=== PATIENT | male | born 1960 | race Caucasian/White ===

== ENCOUNTER 2016-09-05 17:38 | Emergency (ER) | payer OTHER ==
[~2016-09-05] VITALS: Ht 172.7 cm; Wt 81.0 kg
[~2016-09-05 17:38] MED LIST: CARAFATE1 GM/10 ML PO; CITALOPRAM10 MG PO; DOXYCYC MONO100 M1 PO; LORTAB 7.5-3251 TAB PO; NORVASC2.5 MG PO; PREDNISONE10 MG PO; VENTOLIN HFA IN; VICODIN1 TA1 PO; VICOPROFEN PO; ZESTRIL10 M1 PO
[2016-09-05 18:10] VITALS: BP 189/106
== END 2016-09-05 18:25 | disposition home or self-care (01) | DRG 605 ==
LOC: ED 17:38
PROC: 0HQFXZZ Repair Right Hand Skin, External Approach (ICD-10-PCS; principal; 2016-09-05)
DX: S61.214A Laceration without foreign body of right ring finger without damage to nail, initial encounter (principal); W25.XXXA Contact with sharp glass, initial encounter; Y93.E9 Activity, other interior property and clothing maintenance; Y92.000 Kitchen of unspecified non-institutional (private) residence as the place of occurrence of the external cause

== ENCOUNTER 2016-12-29 14:01 | Emergency (ER) | payer OTHER ==
[~2016-12-29] VITALS: Ht 172.7 cm; Wt 77.0 kg
[~2016-12-29 14:01] MED LIST changes: +ESCITALOPRAM OX20 MG PO; +GABAPENTIN400 M2 PO; +LORATADINE10 M3; +METHOCARBAM750 MG PO; +RANITIDINE150 M1 PO; +TRAMADOL HCL50 MG PO
[2016-12-29 14:43] LABS: HEMATOCRIT 38.3 % (39.0-50.0); HEMOGLOBIN 13.4 g/dl (14.0-18.0); IMMATURE GRANULOCYTES 0.3 % (0.0-1.0); NEUT# 3.82 thou/uL (1.82-7.42); RED BLOOD COUNT 3.83 mill/uL (4.70-6.10); RED CELL DISTRI WIDTH 11.9 % (11.5-15.5)
[2016-12-29 14:57] LABS: ALBUMIN 4.1 g/dL (3.2-5.0); ALKALINE PHOSPHATASE 165 u/l (38-126); AMYLASE 99 u/l (30-110); ANION GAP 18 (6-22 (CALC)); BILIRUBIN, TOTAL 1.2 mg/dL (0.0-1.4); BUN 10 mg/dL (9-20); BUN/CREATININE RATIO 15 (12-20 (CALC)); CALCIUM 9.1 mg/dL (8.4-10.2); CARBON DIOXIDE 23 mmol/l (22-30); CHLORIDE 99 mmol/l (95-108); CREATININE 0.7 mg/dL (0.7-1.3); GFR > 60 ML/MIN (>=60 (CALC)); GFR FOR AFR.AMER. > 60 ML/MIN (>=60 (CALC)); GLUCOSE 113 mg/dL (75-110); LIPASE 195 u/l (23-300); POTASSIUM 4.1 mmol/l (3.5-5.1); SGOT/AST 163 u/l (17-59); SGPT/ALT 114 u/l (21-72); SODIUM 135 mmol/l (137-146); TOTAL PROTEIN 7.9 g/dL (6.3-8.2)
[2016-12-29 15:09] LABS: MYOGLOBIN 26 ng/mL (0 - 121)
[2016-12-29 16:26] VITALS: BP 123/75
[2016-12-29] MEDS ORDERED: NEXIUM40 M1 PO (17:33)
== END 2016-12-29 17:44 | disposition left against medical advice (07) | DRG 313 ==
LOC: ED 14:01
PROVIDERS: Emergency Medicine
DX: R07.9 Chest pain, unspecified (principal); I10 Essential (primary) hypertension; Z91.19 Patient's noncompliance with other medical treatment and regimen; R11.0 Nausea; R06.02 Shortness of breath; F17.210 Nicotine dependence, cigarettes, uncomplicated; R94.31 Abnormal electrocardiogram [ECG] [EKG]; R93.5 Abnormal findings on diagnostic imaging of other abdominal regions, including retroperitoneum
CPT/HCPCS: Q9967

== ENCOUNTER 2017-01-25 20:16 | Emergency (ER) | payer OTHER ==
[~2017-01-25] VITALS: Ht 172.7 cm; Wt 77.3 kg
[~2017-01-25 20:16] MED LIST changes: +NEXIUM40 M1 PO
[2017-01-25 21:50] LABS: ALBUMIN 3.8 g/dL (3.2-5.0); ALKALINE PHOSPHATASE 139 u/l (38-126); AMYLASE 53 u/l (30-110); ANION GAP 20 (6-22 (CALC)); BILIRUBIN, TOTAL 1.3 mg/dL (0.0-1.4); BUN 7 mg/dL (9-20); BUN/CREATININE RATIO 11 (12-20 (CALC)); CALCIUM 9.6 mg/dL (8.4-10.2); CARBON DIOXIDE 22 mmol/l (22-30); CHLORIDE 103 mmol/l (95-108); CREATININE 0.6 mg/dL (0.7-1.3); ETHYL ALCOHOL 79 mg/dl (0-30); GFR > 60 ML/MIN (>=60 (CALC)); GFR FOR AFR.AMER. > 60 ML/MIN (>=60 (CALC)); GLUCOSE 103 mg/dL (75-110); LIPASE 116 u/l (23-300); POTASSIUM 3.6 mmol/l (3.5-5.1); SGOT/AST 178 u/l (17-59); SGPT/ALT 83 u/l (21-72); SODIUM 141 mmol/l (137-146)
[2017-01-25 21:55] LABS: HEMATOCRIT 36.9 % (39.0-50.0); HEMOGLOBIN 13.2 g/dl (14.0-18.0); IMMATURE GRANULOCYTES 0.4 % (0.0-1.0); MEAN CELL VOLUME 99.5 fL CALC (80.0-100.0); MEAN CORPUSCULAR HGB 35.6 pG CALC (26.0-32.0); MEAN CORPUSCULAR HGB CONC 35.8 g/L CALC (32.0-36.0); NEUT# 4.46 thou/uL (1.82-7.42); RED BLOOD COUNT 3.71 mill/uL (4.70-6.10); RED CELL DISTRI WIDTH 12.1 % (11.5-15.5)
[2017-01-25 22:01] LABS: MYOGLOBIN 33 ng/mL (0 - 121)
[2017-01-25 22:27] LABS: URINE BILIRUBIN - DIPSTICK NEGATIVE (NEGATIVE); URINE BLOOD DIPSTICK NEGATIVE (NEGATIVE); URINE CLARITY CLEAR; URINE COLOR YELLOW; URINE GLUCOSE - DIPSTICK NEGATIVE (NEGATIVE); URINE KETONE NEGATIVE (NEGATIVE); URINE LEUK ESTERASE NEGATIVE (NEGATIVE); URINE NITRITE - DIPSTICK NEGATIVE (Negative); URINE PH 5.5 (4.5-8.0); URINE PROTEIN - DIPSTICK NEGATIVE (NEG-TRACE); URINE UROBILINOGEN - DIPSTICK 0.2 E.U./dL (0.2)
[2017-01-25 22:33] LABS: BARBITURATES NEGATIVE (NEGATIVE); COCAINE NEGATIVE (NEGATIVE); METHADONE NEGATIVE (NEGATIVE); OXCYCODONE POSITIVE (NEGATIVE); TETRAHYDROCANNABIONOL NEGATIVE (NEGATIVE); TRICYLIC ANTIDEPRESSANTS NEGATIVE (NEGATIVE)
[2017-01-25] MEDS ORDERED: MIRTAZAPINE ODT15 MG PO (22:53)
[2017-01-25] MEDS ORDERED: OXYCODONE/ACETA1 TA8 PO (22:54)
[2017-01-25] MEDS ORDERED: TOPAMAX25 MG PO (22:55)
[2017-01-25] MEDS ORDERED: SIMVASTATIN10 MG PO (22:55)
[2017-01-25] MEDS ORDERED: OMEPRAZOLE10 MG PO (22:59)
[2017-01-25 23:30] VITALS: BP 132/77
[2017-01-26] MEDS ORDERED: PERCOCET 10/31 COMBO PO (00:08)
== END 2017-01-26 00:02 | disposition left against medical advice (07) | DRG 392 ==
LOC: ED 20:16
PROVIDERS: Emergency Medicine
DX: R10.9 Unspecified abdominal pain (principal); R93.5 Abnormal findings on diagnostic imaging of other abdominal regions, including retroperitoneum; Z91.19 Patient's noncompliance with other medical treatment and regimen

== ENCOUNTER 2017-02-01 22:09 | Emergency (ER) | payer OTHER ==
[~2017-02-01] VITALS: Ht 172.7 cm; Wt 75.0 kg
[~2017-02-01 22:09] MED LIST changes: +MIRTAZAPINE ODT15 MG PO; +OMEPRAZOLE10 MG PO; +OXYCODONE/ACETA1 TA8 PO; +PERCOCET 10/31 COMBO PO; +SIMVASTATIN10 MG PO; +TOPAMAX25 MG PO
[2017-02-01] MEDS ORDERED: GABAPENTIN100 MG PO (22:29)
[2017-02-01 22:54] LABS: HEMATOCRIT 34.2 % (39.0-50.0); IMMATURE GRANULOCYTES 0.4 % (0.0-1.0); MEAN CELL VOLUME 99.7 fL CALC (80.0-100.0); MEAN CORPUSCULAR HGB CONC 35.1 g/L CALC (32.0-36.0); NEUT# 5.06 thou/uL (1.82-7.42); RED BLOOD COUNT 3.43 mill/uL (4.70-6.10); RED CELL DISTRI WIDTH 12.6 % (11.5-15.5)
[2017-02-01 23:39] LABS: ALBUMIN 3.4 g/dL (3.2-5.0); ALKALINE PHOSPHATASE 124 u/l (38-126); AMYLASE 41 u/l (30-110); ANION GAP 15 (6-22 (CALC)); BILIRUBIN, TOTAL 1.2 mg/dL (0.0-1.4); BUN 9 mg/dL (9-20); BUN/CREATININE RATIO 15 (12-20 (CALC)); CALCIUM 9.4 mg/dL (8.4-10.2); CARBON DIOXIDE 26 mmol/l (22-30); CHLORIDE 100 mmol/l (95-108); CREATININE 0.6 mg/dL (0.7-1.3); GFR > 60 ML/MIN (>=60 (CALC)); GFR FOR AFR.AMER. > 60 ML/MIN (>=60 (CALC)); GLUCOSE 131 mg/dL (75-110); LIPASE 63 u/l (23-300); POTASSIUM 3.7 mmol/l (3.5-5.1); SGOT/AST 150 u/l (17-59); SGPT/ALT 77 u/l (21-72); SODIUM 137 mmol/l (137-146); TOTAL PROTEIN 7.1 g/dL (6.3-8.2)
[2017-02-01 23:44] LABS: URINE BILIRUBIN - DIPSTICK NEGATIVE (NEGATIVE); URINE BLOOD DIPSTICK NEGATIVE (NEGATIVE); URINE CLARITY CLEAR; URINE COLOR YELLOW; URINE GLUCOSE - DIPSTICK NEGATIVE (NEGATIVE); URINE KETONE NEGATIVE (NEGATIVE); URINE LEUK ESTERASE NEGATIVE (NEGATIVE); URINE NITRITE - DIPSTICK NEGATIVE (Negative); URINE PROTEIN - DIPSTICK NEGATIVE (NEG-TRACE); URINE SPECIFIC GRAVITY <=1.005; URINE UROBILINOGEN - DIPSTICK 0.2 E.U./dL (0.2)
[2017-02-01 23:51] LABS: MYOGLOBIN 40 ng/mL (0 - 121)
[2017-02-02 00:16] LABS: INTERNATIONAL NORMALIZED RATIO 1.3 RATIO (0.7-1.3); PROTHROMBIN TIME 14.1 SECONDS (9.0-12.5)
[2017-02-02 02:26] VITALS: BP 117/74
== END 2017-02-02 02:10 | disposition home or self-care (01) | DRG 437 ==
LOC: ED 22:09
PROVIDERS: Emergency Medicine
DX: C22.9 Malignant neoplasm of liver, not specified as primary or secondary (principal); I10 Essential (primary) hypertension; G89.3 Neoplasm related pain (acute) (chronic); E78.5 Hyperlipidemia, unspecified; F41.9 Anxiety disorder, unspecified; J44.9 Chronic obstructive pulmonary disease, unspecified; F17.210 Nicotine dependence, cigarettes, uncomplicated; F43.9 Reaction to severe stress, unspecified
CPT/HCPCS: J2060

== ENCOUNTER 2017-03-27 18:20 | Emergency (ER) | payer OTHER ==
[~2017-03-27] VITALS: Ht 172.7 cm; Wt 69.0 kg
[~2017-03-27 18:20] MED LIST changes: +GABAPENTIN100 MG PO
[2017-03-27 19:56] LABS: HEMATOCRIT 39.5 % (39.0-50.0); HEMOGLOBIN 13.7 g/dl (14.0-18.0); IMMATURE GRANULOCYTES 0.4 % (0.0-1.0); MEAN CELL VOLUME 97.5 fL CALC (80.0-100.0); MEAN CORPUSCULAR HGB 33.8 pG CALC (26.0-32.0); MEAN CORPUSCULAR HGB CONC 34.7 g/L CALC (32.0-36.0); NEUT# 5.77 thou/uL (1.82-7.42); RED BLOOD COUNT 4.05 mill/uL (4.70-6.10); RED CELL DISTRI WIDTH 13.8 % (11.5-15.5)
[2017-03-27 20:05] LABS: ALBUMIN 3.2 g/dL (3.2-5.0); ALKALINE PHOSPHATASE 136 u/l (38-126); AMYLASE 56 u/l (30-110); ANION GAP 14 (6-22 (CALC)); BILIRUBIN, TOTAL 2.3 mg/dL (0.0-1.4); BUN 16 mg/dL (9-20); BUN/CREATININE RATIO 24 (12-20 (CALC)); CALCIUM 9.2 mg/dL (8.4-10.2); CARBON DIOXIDE 24 mmol/l (22-30); CHLORIDE 97 mmol/l (95-108); CREATININE 0.7 mg/dL (0.7-1.3); GFR > 60 ML/MIN (>=60 (CALC)); GFR FOR AFR.AMER. > 60 ML/MIN (>=60 (CALC)); GLUCOSE 94 mg/dL (75-110); LIPASE 100 u/l (23-300); SGOT/AST 167 u/l (17-59); SGPT/ALT 64 u/l (21-72); SODIUM 130 mmol/l (137-146); TOTAL PROTEIN 7.6 g/dL (6.3-8.2)
[2017-03-27 20:31] LABS: URINE BILIRUBIN - DIPSTICK NEGATIVE (NEGATIVE); URINE BLOOD DIPSTICK NEGATIVE (NEGATIVE); URINE COLOR YELLOW; URINE GLUCOSE - DIPSTICK NEGATIVE (NEGATIVE); URINE KETONE NEGATIVE (NEGATIVE); URINE LEUK ESTERASE NEGATIVE (NEGATIVE); URINE NITRITE - DIPSTICK NEGATIVE (Negative); URINE PH 5.5 (4.5-8.0); URINE PROTEIN - DIPSTICK NEGATIVE (NEG-TRACE); URINE UROBILINOGEN - DIPSTICK 0.2 E.U./dL (0.2)
[2017-03-27 20:43] LABS: URINE CLARITY CLEAR
[2017-03-27] MEDS ORDERED: OXYCODONE HCL15 MG PO (20:48)
[2017-03-27] MEDS ORDERED: TEMAZEPAM15 MG PO (20:49)
[2017-03-27] MEDS ORDERED: EMBEDA 20-0.8 M1 CAP PO (20:49)
[2017-03-27] MEDS ORDERED: PROCHLORPERAZINE5 MG PO (20:50)
[2017-03-27] MEDS ORDERED: SPIRONOLACTONE50 MG PO (20:51)
[2017-03-27] MEDS ORDERED: SINGULAIR10 MG PO (20:52)
[2017-03-27] MEDS ORDERED: LASIX 40 MG40 MG/TAB PO (20:52)
[2017-03-27] MEDS ORDERED: NEXAVAR PO (20:54)
[2017-03-27 22:40] VITALS: BP 115/69
== END 2017-03-27 22:40 | disposition home or self-care (01) | DRG 392 ==
LOC: ED 18:20
PROVIDERS: Emergency Medicine
DX: R13.10 Dysphagia, unspecified (principal); C22.8 Malignant neoplasm of liver, primary, unspecified as to type; C78.02 Secondary malignant neoplasm of left lung; C78.01 Secondary malignant neoplasm of right lung; F17.210 Nicotine dependence, cigarettes, uncomplicated; I10 Essential (primary) hypertension
CPT/HCPCS: J1610

== ENCOUNTER 2017-03-29 15:02 | Emergency (ER) | payer OTHER ==
[~2017-03-29 15:02] MED LIST changes: +EMBEDA 20-0.8 M1 CAP PO; +LASIX 40 MG40 MG/TAB PO; +NEXAVAR PO; +OXYCODONE HCL15 MG PO; +PROCHLORPERAZINE5 MG PO; +SINGULAIR10 MG PO; +SPIRONOLACTONE50 MG PO; +TEMAZEPAM15 MG PO
== END 2017-03-29 15:11 | disposition left against medical advice (07) | DRG 951 ==
LOC: ED 15:02 → LWOBS 15:11
DX: Z91.19 Patient's noncompliance with other medical treatment and regimen (principal)

== ENCOUNTER 2017-04-05 06:32 | Emergency (ER) | payer OTHER ==
[~2017-04-05] VITALS: Ht 172.7 cm; Wt 69.1 kg
[2017-04-05 07:35] LABS: HEMATOCRIT 41.3 % (39.0-50.0); HEMOGLOBIN 14.1 g/dl (14.0-18.0); IMMATURE GRANULOCYTES 0.3 % (0.0-1.0); MEAN CELL VOLUME 97.6 fL CALC (80.0-100.0); MEAN CORPUSCULAR HGB 33.3 pG CALC (26.0-32.0); MEAN CORPUSCULAR HGB CONC 34.1 g/L CALC (32.0-36.0); NEUT# 5.8 thou/uL (1.82-7.42); RED BLOOD COUNT 4.23 mill/uL (4.70-6.10); RED CELL DISTRI WIDTH 14.6 % (11.5-15.5)
[2017-04-05 08:31] LABS: URINE BILIRUBIN - DIPSTICK NEGATIVE (NEGATIVE); URINE BLOOD DIPSTICK NEGATIVE (NEGATIVE); URINE COLOR YELLOW; URINE GLUCOSE - DIPSTICK NEGATIVE (NEGATIVE); URINE KETONE NEGATIVE (NEGATIVE); URINE LEUK ESTERASE NEGATIVE (NEGATIVE); URINE NITRITE - DIPSTICK NEGATIVE (Negative); URINE PROTEIN - DIPSTICK NEGATIVE (NEG-TRACE); URINE SPECIFIC GRAVITY 1.015; URINE UROBILINOGEN - DIPSTICK 0.2 E.U./dL (0.2)
[2017-04-05 08:32] LABS: URINE CLARITY CLEAR
[2017-04-05 08:33] LABS: ALBUMIN 3.6 g/dL (3.2-5.0); ALKALINE PHOSPHATASE 146 u/l (38-126); ANION GAP 16 (6-22 (CALC)); BILIRUBIN, TOTAL 2.5 mg/dL (0.0-1.4); BUN 16 mg/dL (9-20); BUN/CREATININE RATIO 23 (12-20 (CALC)); CALCIUM 9.6 mg/dL (8.4-10.2); CARBON DIOXIDE 23 mmol/l (22-30); CHLORIDE 96 mmol/l (95-108); CREATININE 0.7 mg/dL (0.7-1.3); ETHYL ALCOHOL 0 mg/dl (0-30); GFR > 60 ML/MIN (>=60 (CALC)); GFR FOR AFR.AMER. > 60 ML/MIN (>=60 (CALC)); GLUCOSE 102 mg/dL (75-110); SGOT/AST 149 u/l (17-59); SGPT/ALT 57 u/l (21-72); SODIUM 130 mmol/l (137-146); TOTAL PROTEIN 8.4 g/dL (6.3-8.2)
[2017-04-05 08:34] LABS: BARBITURATES NEGATIVE (NEGATIVE); COCAINE NEGATIVE (NEGATIVE); METHADONE NEGATIVE (NEGATIVE); OXCYCODONE POSITIVE (NEGATIVE); TETRAHYDROCANNABIONOL NEGATIVE (NEGATIVE); TRICYLIC ANTIDEPRESSANTS NEGATIVE (NEGATIVE)
[2017-04-05 08:34] LABS: POTASSIUM 5.4 mmol/l (3.5-5.1)
[2017-04-05 08:41] LABS: MYOGLOBIN 56 ng/mL (0 - 121)
[2017-04-05] MEDS ORDERED: XANAX0.5 MG PO (08:57)
[2017-04-05 09:14] VITALS: BP 128/79
== END 2017-04-05 09:30 | disposition home or self-care (01) | DRG 881 ==
LOC: ED 06:32
PROVIDERS: Emergency Medicine
DX: F32.9 Major depressive disorder, single episode, unspecified (principal); C22.8 Malignant neoplasm of liver, primary, unspecified as to type; C78.00 Secondary malignant neoplasm of unspecified lung; I10 Essential (primary) hypertension; E78.5 Hyperlipidemia, unspecified; J44.9 Chronic obstructive pulmonary disease, unspecified; F41.9 Anxiety disorder, unspecified; F17.210 Nicotine dependence, cigarettes, uncomplicated; R41.82 Altered mental status, unspecified
CPT/HCPCS: J2060